=== PATIENT | female | born 1980 | race Caucasian/White ===

== ENCOUNTER 2017-05-23 11:47 | Inpatient (IN) | payer MEDICAID ==
[2017-05-23] VITALS (8 sets, daily range): BP systolic 121–134; BP diastolic 69–86; PULSE 78–90; RESP 14–18; TEMP 97.3–97.8; O2SAT 97–100
[~2017-05-23 11:47] MED LIST: AMOX500T PO; FERRTAB6 PO; HEMOCAP PO; PREN1CAP30 PO
[2017-05-23] MEDS ORDERED: DEXAMETHASONE SOD PHOS 4 MG/ML VIAL IV ONE (12:00)
[2017-05-23] MEDS ORDERED: LACTATED RINGER'S 1000 ML INJ 1,000 ML IV ONE ×2 (12:00→15:22)
[2017-05-23] MEDS ORDERED: OXYTOCIN 10 UNIT/ML AMP IV ONE (12:00)
[2017-05-23] MEDS ORDERED: PHENYLEPH/NS 1000 MCG/10 ML SYR IV ONE (12:00)
[2017-05-23] MEDS ORDERED: ceFAZolin INJ 1,000 MG VIAL IV ONE (12:00)
[2017-05-23] MEDS ORDERED: NORMOSOL R INJ 1,000 ML IV ONE (12:00)
[2017-05-23] MEDS ORDERED: ONDANSETRON HCL 4 MG/2 ML VIAL IV ONE (12:00)
[2017-05-23 13:04] LABS: AUTOMATED NEUTROPHIL # 7.1 TH/MM3 (1.8-7.7); BASOPHIL # 0.1 TH/MM3 (0-0.2); BASOPHIL % 0.6 % (0.0-2.0); EOSINOPHIL # 0.1 TH/MM3 (0-0.4); EOSINOPHIL % 1.3 % (0.0-4.0); HEMATOCRIT 33.7 % (35.0-46.0); HEMOGLOBIN 11.2 GM/DL (11.6-15.3); LYMPH % 20.4 % (9.0-44.0); MEAN CELL VOLUME 79.6 FL (80.0-100.0); MEAN CORPUSCULAR HEMOGLOBIN 26.5 PG (27.0-34.0); MEAN CORPUSCULAR HGB CONC 33.2 % (32.0-36.0); MEAN PLATELET VOLUME 9.9 FL (7.0-11.0); MONO % 5.4 % (0.0-8.0); MONOCYTE # 0.5 TH/MM3 (0-0.9); NEUT % 72.3 % (16.0-70.0); PLATELET COUNT 269 TH/MM3 (150-450); RED BLOOD COUNT 4.24 MIL/MM3 (4.00-5.30); RED CELL DISTRIBUTION WIDTH 17.7 % (11.6-17.2); WHITE BLOOD COUNT 9.8 TH/MM3 (4.0-11.0)
[2017-05-23 13:14] LABS: BACTERIA, URINE FEW /hpf; BILIRUBIN, URINE NEG (NEG); BLOOD, URINE NEG (NEG); GLUCOSE,URINE NEG (NEG); KETONE, URINE NEG (NEG); MUCUS URINE FEW /lpf (OCC); NITRITE,URINE NEG (NEG); SQUAMOUS EPITHELIAL CELL URINE 26 /hpf (0-5); URINE COLOR YELLOW (YELLW/STRAW); URINE LEUKOCYTE ESTERASE LARGE (NEG)
[2017-05-23 13:25] LABS: ALBUMIN 2.3 GM/DL (3.4-5.0); ALT (GPT) 24 U/L (10-53); AST (GOT) 18 U/L (15-37); BICARBONATE 19.4 MEQ/L (21.0-32.0); BLOOD UREA NITROGEN 14 MG/DL (7-18); CALCIUM 9.2 MG/DL (8.5-10.1); CHLORIDE 106 MEQ/L (98-107); CREATININE 0.71 MG/DL (0.50-1.00); GLOMERULAR FILTRATION RATE 94 ML/MIN (>89); GLUCOSE,RANDOM 79 MG/DL (74-106); SODIUM (NA) 137 MEQ/L (136-145)
[2017-05-23 13:28] LABS: ALKALINE PHOSPHATASE 162 U/L (45-117); TOTAL BILIRUBIN ADULT 0.3 MG/DL (0.2-1.0)
--- NOTE | 2017-05-23 14:54 | PD ---
HPI Chief Complaint high blood pressure Date Seen: May 23, 2017 Time Seen: 13:00 Travel History International Travel<30 Days: No Contact w/Intl Traveler<30Days: No History of Present Illness HPI 36 y/o at 39/0 weeks presents today from her OB office for evaluation of high blood pressure. She sees [facility] and was seen in office today and sent over to the ED for further evaluation. Pt has some headaches, but otherwise denies any other symptoms. She states she had elevated pressures previously in , but resolved. History of anemia prior to , and has been taking iron during the . Denies any leg swelling, changes in vision, RUQ pain. No problems during this . She was scheduled for repeat on Friday. Denies any other vaginal bleeding, loss of fluids. Endorses occasional Melvin-carlin contractions. Endorses good movement. Denies any chest pain , SOB, abdominal pain, leg pain/swelling. Weeks Gestation: 39 Para: 1 : 2 History Past Medical History Narrative Medical Anemia Obstetric History Obstetric History Past Surgical History Narrative Surgical Cholecystectomy Knee surgery Family History Family History: Negative Social History Alcohol Use: No Tobacco Use: No Substance Abuse: No Allergies-Medications (Allergen,Severity, Reaction): Coded Allergies: No Known Allergies (Unverified Adverse Reaction, Unknown, 05/16/17) Home Meds Active Scripts Amoxicillin (Amoxicillin) 500 Mg Tab, 500 MG PO TID for Infection for 10 Days, # 21 TAB 0 Refills Prov:Johanna Simon CNM [facility] 04/30/17 Ferrous Aqqgpejt-BT-K Complex- (Ferrocite Plus 106-1 mg) 106 Mg Iron-1 Mg Tab, 1 CAP PO BID for 30 Days, #60 CAP 2 Refills Prov:Johanna Simon CNM [facility] 04/23/17 Multi-Vit w/JH-Zprk-Fhnvlyeg (Hemocyte Plus) 106 Mg Iron-1 Mg Cap, 1 CAP PO DAILY for Nutritional Supplement, #30 CAP 0 Refills Prov:Paolo Torres MD 02/20/17 Without A W/Fe Fum-Fe (Provida Dha 16-16-1.25-110 mg) 1 Cap Cap, 1 TAB PO DAILY, #90 BOTTLE 3 Refills Prov:SherAnastacia B. [facility] 11/22/16 Vit W/ Ferrous Fumara (Vitafol-Ob) 1 Tab Tab Prov:Johanna SimonIsai ORTEGA [facility] 11/22/16 Review of Systems General / Constitutional: Weight Gain, No: Fever, Weight Loss, Chills, Other Eyes: No: Diploplia, Blurred Vision, Visual changes, Pain, Photophobia HENT: No: Headaches, Vertigo, Lightheadedness Cardiovascular: No: Irregular Rhythm, Chest Pain or Discomfort, Palpitations, Tachycardia, Syncope, Varicosities, Edema, Cyanosis Respiratory: No: Cough, Short of Breath, Other Gastrointestinal: No: Nausea, Vomiting, Diarrhea, Abdominal Pain, Constipation Genitourinary: No: Urgency, Frequency, Dysuria, Hematuria, Decreased Urinary Output, Oliguria, Pelvic Pain, Discharge, Menorrhagia, Vaginal Bleeding Musculoskeletal: No: Limited ROM, Weakness, Cramping, Edema, Pain Skin: No Rash, No Itching, No Dryness, No Lumps, No Change in Pigmentation, No Change in Nails, No Alopecia, No Lesions Neurologic: No: Weakness, Dizziness, Syncope, Focal Abnormalities, Coordination Problem, Headache, Slurred Speech, Seizures Psychiatric: No: Depression, Suicidal Ideations, Homicidal Ideation Endocrine: No: Heat Intolerance, Cold Intolerance, Polydipsia, Polyuria, Other Physical Exam Narrative GENERAL: Well-nourished, well-developed patient. SKIN: Warm and dry. HEAD: Normocephalic and atraumatic. EYES: No scleral icterus. No injection or drainage. ENT: No nasal drainage noted. Mucous membranes pink. Airway patent. NECK: Supple, trachea midline. No JVD. CARDIOVASCULAR: Regular rate and rhythm without murmurs, gallops, or rubs. RESPIRATORY: Breath sounds equal bilaterally. No accessory muscle use. ABDOMEN/GI: Abdomen soft, non-tender, bowel sounds present, no rebound, no guarding Gravid to 39 weeks size GENITOURINARY: deferred Uterine Contractions: occasional FHT's: Category: 1 Baseline: 150 Reactive: yes Variability: moderate Decels: one late noted w/o contraction EXTREMITIES: No cyanosis or edema. BACK: Nontender without obvious deformity. No CVA tenderness. NEUROLOGICAL: Awake and alert. Motor and sensory grossly within normal limits. Five out of 5 muscle strength in all muscle groups. Normal speech. Data Data Vital Signs Reviewed: Yes Orders Orders Complete Blood Count With Diff (05/23/17 12:45) Comprehensive Metabolic Panel (05/23/17 12:45) Uric Acid (05/23/17 12:45) Protein Creat Ratio, Random Ur (05/23/17 12:45) Urinalysis - C+S If Indicated (05/23/17 12:48) Ob (2e) Additional Admit Info (05/23/17 14:28) Group B Strep: Positive Labs Laboratory Tests Test 05/23/17 12:38 White Blood Count 9.8 Red Blood Count 4.24 Hemoglobin 11.2 Hematocrit 33.7 Mean Corpuscular Volume 79.6 Mean Corpuscular Hemoglobin 26.5 Mean Corpuscular Hemoglobin Concent 33.2 Red Cell Distribution Width 17.7 Platelet Count 269 Mean Platelet Volume 9.9 Neutrophils (%) (Auto) 72.3 Lymphocytes (%) (Auto) 20.4 Monocytes (%) (Auto) 5.4 Eosinophils (%) (Auto) 1.3 Basophils (%) (Auto) 0.6 Neutrophils # (Auto) 7.1 Lymphocytes # (Auto) 2.0 Monocytes # (Auto) 0.5 Eosinophils # (Auto) 0.1 Basophils # (Auto) 0.1 CBC Comment DIFF FINAL Differential Comment Urine Color YELLOW Urine Turbidity HAZY Urine pH 6.0 Urine Specific [place] 1.019 Urine Protein TRACE Urine Glucose (UA) NEG Urine Ketones NEG Urine Occult Blood NEG Urine Nitrite NEG Urine Bilirubin NEG Urine Urobilinogen LESS THAN 2.0 Urine Leukocyte Esterase LARGE Urine RBC 2 Urine WBC 5 Urine Squamous Epithelial Cells 26 Urine Bacteria FEW Urine Mucus FEW Microscopic Urinalysis Comment CULT NOT INDICATED Urine Random Creatinine 120 Urine Random Total Protein 28 Urine Protein/Creatinine Ratio 0.23 Blood Urea Nitrogen 14 Creatinine 0.71 Random Glucose 79 Total Protein 7.0 Albumin 2.3 Calcium Level 9.2 Uric Acid 4.2 Alkaline Phosphatase 162 Aspartate Amino Transf (AST/SGOT) 18 Alanine Aminotransferase (ALT/SGPT) 24 Total Bilirubin 0.3 Sodium Level 137 Potassium Level 3.9 Chloride Level 106 Carbon Dioxide Level 19.4 Anion Gap 12 Estimat Glomerular Filtration Rate 94 MDM Medical Record Reviewed: Yes Interpretation(s) 36 y/o at 39 weeks presents with high blood pressure BP 150/94 initially Category 1 FHT -Pre-eclampsia workup -CBC, CMP, uric acid, UA w/ protein/Cr ratio -Monitor vitals -Monitor baby Narrative Course / MDM Continued high blood pressures, up to 158/105 Plts 269, uric acid 4.2, AST/ALT 18/24, UA Protein/Cr ratio: 0.23 -With continued elevated BPs and being scheduled for repeat in 3 days , decision made to undergo today -Admit to L&D -Pre-op orders Diagnosis Diagnosis: Primary Impression: Hypertension affecting in third trimester Felix Garcia MD May 23, 2017 14:54
[2017-05-23] MEDS ORDERED: MORPHINE SULFATE PF 5 MG/10 ML VIAL ONE (15:28)
[2017-05-23] MEDS ORDERED: ACETAMINOPHEN 1000 MG/100 ML 100 ML IV ONE ×2 (15:29→19:00)
--- NOTE | 2017-05-23 15:50 | PD ---
History of Present Illness History of Present Illness [facility] Attending The patient is a 36-year-old with intrauterine 39 weeks and 0 days. She presents from the office with elevated blood pressures. Her blood pressures are elevated here at 150s over 90s and she has a headache. The fetus has an overall reassuring heart rate tracing but occasionally will have a spontaneous, self resolving deceleration. In between, the heart rate tracing is moderate long-term variability with good accelerations noted. Decision was made to proceed with a repeat delivery. Risks benefits and alternatives were discussed with the patient length including but not limited to pain, infection, bleeding, injury to other organs like the bladder/ bowel/nerves/vessels, injury to the baby, need for repeat operation, need for hysterectomy, need for blood transfusion, wound infection/breakdown, and other possible complications. The patient desires permanent surgical sterilization and signed her papers on 03/25/17. We discussed the permanent irreversible nature of the procedure and that the procedure cannot be reversed if the patient desired any further biological children. She is certain that she is content with her family size and desires no further biological children. We discussed the risk of failure of approximately 1% with the associated risk of an ectopic that may require emergency surgery. We discussed other risks including tubal regret. We discussed alternatives at length including but not limited to the obiee report developer reversible contraceptive methods. The patient is certain she desires a tubal and states that in addition her is going to get a vasectomy. Consent was signed for the delivery and for the tubal ligation. Anastacia Hernández MD May 23, 2017 15:50
--- NOTE | 2017-05-23 16:14 | HHI.HP ---
History & Physical H&P HPI Chief Complaint high blood pressure Date Seen: May 23, 2017 Time Seen: 13:00 Travel History International Travel<30 Days: No Contact w/Intl Traveler<30Days: No History of Present Illness HPI 36 y/o at 39/0 weeks presents today from her OB office for evaluation of high blood pressure. She sees [facility] and was seen in office today and sent over to the ED for further evaluation. Pt has some headaches, but otherwise denies any other symptoms. She states she had elevated pressures previously in , but resolved. History of anemia prior to , and has been taking iron during the . Denies any leg swelling, changes in vision, RUQ pain. No problems during this . She was scheduled for repeat on Friday. Denies any other vaginal bleeding, loss of fluids. Endorses occasional Melvin-carlin contractions. Endorses good movement. Denies any chest pain , SOB, abdominal pain, leg pain/swelling. Weeks Gestation: 39 Para: 1 : 2 History (Limited) History Past Medical History Narrative Medical Anemia Obstetric History Obstetric History Past Surgical History Narrative Surgical Cholecystectomy Knee surgery Family History Family History: Negative Social History Alcohol Use: No Tobacco Use: No Substance Abuse: No Allergies-Medications Allergies-Medications (Allergen,Severity, Reaction): Coded Allergies: No Known Allergies (Unverified Adverse Reaction, Unknown, 05/16/17) Home Meds Active Scripts Amoxicillin (Amoxicillin) 500 Mg Tab, 500 MG PO TID for Infection for 10 Days, # 21 TAB 0 Refills Prov:Johanna Simon CNM [facility] 04/30/17 Ferrous Bmwjqpsx-NG-G Complex- (Ferrocite Plus 106-1 mg) 106 Mg Iron-1 Mg Tab, 1 CAP PO BID for 30 Days, #60 CAP 2 Refills Prov:Johanna Simon CNM [facility] 04/23/17 Multi-Vit w/WN-Hxxp-Irdugoar (Hemocyte Plus) 106 Mg Iron-1 Mg Cap, 1 CAP PO DAILY for Nutritional Supplement, #30 CAP 0 Refills Prov:Paolo Torres MD 02/20/17 Without A W/Fe Fum-Fe (Provida Dha 16-16-1.25-110 mg) 1 Cap Cap, 1 TAB PO DAILY, #90 BOTTLE 3 Refills Prov:Anastacia Olivarez [facility] 11/22/16 Vit W/ Ferrous Fumara (Vitafol-Ob) 1 Tab Tab Prov:SimonJohanna MaximilianIsai ORTEGA [facility] 11/22/16 ROS Review of Systems General / Constitutional: Weight Gain, No: Fever, Weight Loss, Chills, Other Eyes: No: Diploplia, Blurred Vision, Visual changes, Pain, Photophobia HENT: No: Headaches, Vertigo, Lightheadedness Cardiovascular: No: Irregular Rhythm, Chest Pain or Discomfort, Palpitations, Tachycardia, Syncope, Varicosities, Edema, Cyanosis Respiratory: No: Cough, Short of Breath, Other Gastrointestinal: No: Nausea, Vomiting, Diarrhea, Abdominal Pain, Constipation Genitourinary: No: Urgency, Frequency, Dysuria, Hematuria, Decreased Urinary Output, Oliguria, Pelvic Pain, Discharge, Menorrhagia, Vaginal Bleeding Musculoskeletal: No: Limited ROM, Weakness, Cramping, Edema, Pain Skin: No Rash, No Itching, No Dryness, No Lumps, No Change in Pigmentation, No Change in Nails, No Alopecia, No Lesions Neurologic: No: Weakness, Dizziness, Syncope, Focal Abnormalities, Coordination Problem, Headache, Slurred Speech, Seizures Psychiatric: No: Depression, Suicidal Ideations, Homicidal Ideation Endocrine: No: Heat Intolerance, Cold Intolerance, Polydipsia, Polyuria, Other Physical Exam Physical Exam Narrative GENERAL: Well-nourished, well-developed patient. SKIN: Warm and dry. HEAD: Normocephalic and atraumatic. EYES: No scleral icterus. No injection or drainage. ENT: No nasal drainage noted. Mucous membranes pink. Airway patent. NECK: Supple, trachea midline. No JVD. CARDIOVASCULAR: Regular rate and rhythm without murmurs, gallops, or rubs. RESPIRATORY: Breath sounds equal bilaterally. No accessory muscle use. ABDOMEN/GI: Abdomen soft, non-tender, bowel sounds present, no rebound, no guarding Gravid to 39 weeks size GENITOURINARY: deferred Uterine Contractions: occasional FHT's: Category: 1 Baseline: 150 Reactive: yes Variability: moderate Decels: one late noted w/o contraction EXTREMITIES: No cyanosis or edema. BACK: Nontender without obvious deformity. No CVA tenderness. NEUROLOGICAL: Awake and alert. Motor and sensory grossly within normal limits. Five out of 5 muscle strength in all muscle groups. Normal speech. Data Data Data Vital Signs Reviewed: Yes Orders Orders Complete Blood Count With Diff (05/23/17 12:45) Comprehensive Metabolic Panel (05/23/17 12:45) Uric Acid (05/23/17 12:45) Protein Creat Ratio, Random Ur (05/23/17 12:45) Urinalysis - C+S If Indicated (05/23/17 12:48) Ob (2e) Additional Admit Info (05/23/17 14:28) Group B Strep: Positive Labs Laboratory Tests Test 05/23/17 12:38 White Blood Count 9.8 Red Blood Count 4.24 Hemoglobin 11.2 Hematocrit 33.7 Mean Corpuscular Volume 79.6 Mean Corpuscular Hemoglobin 26.5 Mean Corpuscular Hemoglobin Concent 33.2 Red Cell Distribution Width 17.7 Platelet Count 269 Mean Platelet Volume 9.9 Neutrophils (%) (Auto) 72.3 Lymphocytes (%) (Auto) 20.4 Monocytes (%) (Auto) 5.4 Eosinophils (%) (Auto) 1.3 Basophils (%) (Auto) 0.6 Neutrophils # (Auto) 7.1 Lymphocytes # (Auto) 2.0 Monocytes # (Auto) 0.5 Eosinophils # (Auto) 0.1 Basophils # (Auto) 0.1 CBC Comment DIFF FINAL Differential Comment Urine Color YELLOW Urine Turbidity HAZY Urine pH 6.0 Urine Specific [place] 1.019 Urine Protein TRACE Urine Glucose (UA) NEG Urine Ketones NEG Urine Occult Blood NEG Urine Nitrite NEG Urine Bilirubin NEG Urine Urobilinogen LESS THAN 2.0 Urine Leukocyte Esterase LARGE Urine RBC 2 Urine WBC 5 Urine Squamous Epithelial Cells 26 Urine Bacteria FEW Urine Mucus FEW Microscopic Urinalysis Comment CULT NOT INDICATED Urine Random Creatinine 120 Urine Random Total Protein 28 Urine Protein/Creatinine Ratio 0.23 Blood Urea Nitrogen 14 Creatinine 0.71 Random Glucose 79 Total Protein 7.0 Albumin 2.3 Calcium Level 9.2 Uric Acid 4.2 Alkaline Phosphatase 162 Aspartate Amino Transf (AST/SGOT) 18 Alanine Aminotransferase (ALT/SGPT) 24 Total Bilirubin 0.3 Sodium Level 137 Potassium Level 3.9 Chloride Level 106 Carbon Dioxide Level 19.4 Anion Gap 12 Estimat Glomerular Filtration Rate 94 MDM MDM Medical Record Reviewed: Yes Interpretation(s) 36 y/o at 39 weeks presents with high blood pressure BP 150/94 initially Category 1 FHT -Pre-eclampsia workup -CBC, CMP, uric acid, UA w/ protein/Cr ratio -Monitor vitals -Monitor baby Narrative Course / MDM Continued high blood pressures, up to 158/105 Plts 269, uric acid 4.2, AST/ALT 18/24, UA Protein/Cr ratio: 0.23 -With continued elevated BPs and being scheduled for repeat in 3 days , decision made to undergo today -Admit to L&D -Pre-op orders Felix Garcia MD May 23, 2017 16:14
[2017-05-23] MEDS ORDERED: ceFAZolin 2 GM PREMIX 50 ML IV SCH (16:30)
[2017-05-23] MEDS ORDERED: CITRIC ACID-SODIUM CITRATE LIQ 30 ML UDC PO SCH (17:00)
--- NOTE | 2017-05-23 17:45 | PD.OB.DELI ---
Procedure Note Section Procedure Performed by Anastacia Hernández Procedure: Repeat Low Transverse Sec Indication for delivery: Maternal medical problems Informed consent obtained: For anesthesia, For procedure Confirmed correct: Patient, Procedure, Site, Time-out taken Anesthesia: Spinal Medication prior to procedure: As documented in eMAR Monitoring during procedure: Blood pressure monitoring, alarm security or surveillance monitor, doppler, Pulse oximetry Urinary catheter: Inserted using sterile technique, To dependent drainage, ml urine output (100 cc clear urine) Sterile preparation: With drapes to expose affected area, Other (Chloraprep) Position: Supine with wedge to left side Operative Features Skin Incision: Pfannenstiel Uterine Incision: Low transverse w/knife / blunt ext Membranes Ruptured: Artificially, Appearance of fluid (thin meconium) Presentation: Occiput posterior Delivery date: May 23, 2017 Delivery time: 16:21 Delivery of : Uneventful Infant: Female One Minute : 9 Five Minute : 9 Weight: 7#12oz Status of : Viable, Cord blood, Umbilical cord Placenta delivered: Intact Medications: Antibiotics, Oxytocin Estimated blood loss: 750cc Procedure tolerated: Well Maternal Condition: Stable Condition: Stable Procedure in detail See dictation Anastacia Hernández MD May 23, 2017 17:45
[2017-05-23] MEDS ORDERED: EPIDURAL-NO SYSTEMIC NARCOTICS PRN (18:45)
[2017-05-23] MEDS ORDERED: EPIDURAL-NALOXONE HCL 0.4 MG/ML AMP IV PUSH PRN (18:45)
[2017-05-23] MEDS ORDERED: EPIDURAL-DO NOT ADMINISTER ANTICOAGULANTS PRN (18:45)
[2017-05-23] MEDS ORDERED: EPIDURAL-DIPHENHYDRAMINE HCL 50 MG/ML VIAL IV PUSH PRN (18:45)
[2017-05-23] MEDS ORDERED: ZOLPIDEM TARTRATE 5 MG TAB PO PRN (19:00)
[2017-05-23] MEDS ORDERED: ACETAMINOPHEN 325 MG TAB PO PRN (19:00)
[2017-05-23] MEDS ORDERED: SODIUM CHLORIDE 0.9% FLUSH 10 ML FLUSH IV FLUSH PRN (19:00)
[2017-05-23] MEDS ORDERED: ONDANSETRON HCL 4 MG/2 ML VIAL IV PUSH PRN (19:00)
[2017-05-23] MEDS ORDERED: OXYTOCIN 30 UNITS-500ML PREMIX 500 ML IV ONE (19:00)
[2017-05-23] MEDS: IBUPROFEN 600 MG TAB PO PRN (19:51)
[2017-05-23] MEDS ORDERED: LACTATED RINGER'S 1000 ML INJ 1,000 ML IV SCH (23:47)
[2017-05-24] VITALS: BP 134/71; PULSE 82; RESP 18; TEMP 97.5
[2017-05-24] MEDS: oxyCODONE/ACETAMINOPHEN 5 MG/325 MG TAB PO PRN ×5 (00:06→20:10)
[2017-05-24] MEDS: EPIDURAL-DIPHENHYDRAMINE HCL 50 MG CAP PO PRN ×2 (02:17→09:00)
[2017-05-24 04:00] VITALS: BP 122/79; PULSE 81; RESP 18; TEMP 97.8
[2017-05-24] MEDS: IBUPROFEN 600 MG TAB PO PRN ×3 (04:22→22:41)
[2017-05-24] MEDS: DOCUSATE SODIUM 50 MG/SENNA 8.6 MG TAB PO PRN ×2 (04:22→20:10)
[2017-05-24] MEDS ORDERED: OXYTOCIN 30 UNITS-500ML PREMIX 500 ML IV PRN (05:00)
[2017-05-24 05:17] LABS: AUTOMATED NEUTROPHIL # 13.4 TH/MM3 (1.8-7.7); BASOPHIL % 0.2 % (0.0-2.0); HEMATOCRIT 28.7 % (35.0-46.0); HEMOGLOBIN 9.4 GM/DL (11.6-15.3); LYMPH % 8.8 % (9.0-44.0); LYMPHOCYTE # 1.4 TH/MM3 (1.0-4.8); MEAN CELL VOLUME 79.2 FL (80.0-100.0); MEAN CORPUSCULAR HGB CONC 32.8 % (32.0-36.0); MEAN PLATELET VOLUME 10.6 FL (7.0-11.0); MONO % 3.8 % (0.0-8.0); MONOCYTE # 0.6 TH/MM3 (0-0.9); NEUT % 87.2 % (16.0-70.0); PLATELET COUNT 231 TH/MM3 (150-450); RED BLOOD COUNT 3.63 MIL/MM3 (4.00-5.30); RED CELL DISTRIBUTION WIDTH 17.5 % (11.6-17.2); WHITE BLOOD COUNT 15.3 TH/MM3 (4.0-11.0)
--- NOTE | 2017-05-24 06:08 | HHI.OB ---
Objective Vitals/I&O Vital Signs Date Time Temp Pulse Resp B/P (MAP) Pulse Ox O2 Delivery O2 Flow Rate FiO2 05/24/17 04:00 122/79 (93) 05/24/17 04:00 97.8 81 18 05/24/17 00:00 97.5 05/24/17 00:00 82 18 134/71 (92) 05/23/17 19:43 82 121/71 (88) 05/23/17 19:43 97.6 18 97 05/23/17 18:40 78 122/86 (98) 05/23/17 18:40 97.8 14 97 05/23/17 18:16 80 18 134/74 (94) 05/23/17 18:16 99 05/23/17 18:10 100 05/23/17 18:10 78 18 132/69 (90) 05/23/17 17:55 79 18 128/78 (95) 100 05/23/17 17:55 97.3 05/23/17 17:40 100 05/23/17 17:40 79 18 128/77 (94) 05/23/17 17:25 88 18 130/75 (93) 97 05/23/17 17:15 97.3 90 18 100 05/23/17 17:15 123/73 (90) Objective Remarks GENERAL: Well-nourished, well-developed patient. CARDIOVASCULAR: Regular rate and rhythm without murmurs, gallops, or rubs. RESPIRATORY: Breath sounds equal bilaterally. No accessory muscle use. ABDOMEN/GI: Abdomen soft, non-tender. Fundus: Firm, non-tender at umbilicus. GENITOURINARY: Light to moderate bleeding. EXTREMITIES: No cyanosis or edema, non-tender, without signs of DVT. Medications and IVs Current Medications Medications (Trade) Dose Ordered Sig/Kerrie Route Start Time Stop Time Status Last Admin Lactated Ringer's 1,000 ml @ 150 mls/hr Q6H40M IV 05/23/17 15:52 Cefazolin Sodium/ Dextrose 50 ml @ 100 mls/hr PERSONAL LINES ACCOUNT EXECUTIVE IV 05/23/17 16:30 05/27/17 16:29 05/23/17 15:34 (Bicitra Liq) 30 ml PERSONAL LINES ACCOUNT EXECUTIVE PO 05/23/17 17:00 05/27/17 16:59 05/23/17 15:34 Miscellaneous Information NO SYSTEMIC NARCOTICS TO BE GIVEN FO... UNSCH PRN .XX 05/23/17 18:45 05/24/17 18:44 (Narcan Inj) 0.4 mg UNSCH PRN IV PUSH 05/23/17 18:45 05/24/17 18:44 (Benadryl Inj) 25 mg Q6H PRN IV PUSH 05/23/17 18:45 05/24/17 18:44 (Benadryl) 50 mg Q6H PRN PO 05/23/17 18:45 05/24/17 18:44 05/24/17 02:17 Miscellaneous Information ALL NURSING DEPARTMENTS UNSCH PRN .XX 05/23/17 18:45 05/24/17 18:44 Lactated Ringer's 1,000 ml @ 100 mls/hr Q10H IV 05/23/17 23:47 05/24/17 19:46 05/23/17 04:00 Oxytocin 500 ml @ 100 mls/hr UNSCH X1 PRN IV 05/24/17 05:00 05/25/17 04:59 (NS Flush) 2 ml BID IV FLUSH 05/23/17 21:00 (NS Flush) 2 ml UNSCH PRN IV FLUSH 05/23/17 19:00 (Mylicon Chew) 80 mg QID PRN PO 05/23/17 19:00 (Tylenol) 650 mg Q6H PRN PO 05/23/17 19:00 (Motrin) 600 mg Q6H PRN PO 05/23/17 19:00 05/24/17 04:22 (Percocet 5-325 Mg) 1 tab Q4H PRN PO 05/23/17 19:00 05/24/17 04:22 (Percocet 5-325 Mg) 2 tab Q4H PRN PO 05/23/17 19:00 (Sandy-Colace) 2 tab Q12H PRN PO 05/23/17 19:00 05/24/17 04:22 (Ambien) 5 mg HS PRN PO 05/23/17 19:00 (M-M-R Ii Inj) 0.5 ml ONCE ONCE SQ 05/24/17 16:00 05/24/17 16:01 (Boostrix Inj) 0.5 ml ONCE ONCE IM 05/24/17 16:00 05/24/17 16:01 (Zofran Inj) 4 mg Q6H PRN IV PUSH 05/23/17 19:00 Samia Hudson MD R2 May 24, 2017 06:08
--- NOTE | 2017-05-24 06:12 | HHI.OB ---
Subjective Post Operative Day: 1 Remarks Postoperative day # 1. AFVSS overnight. Pain is well controlled on medication. She feels pain in her back and her incision feels sore. Incision clean, dry, and intact, not draining. Lochia less than a period. Denies dysuria. No breast tenderness. She is feeding the baby via breast. Appetite good. No nausea or vomiting. Negative flatus. Negative bowel movement. Ambulating well. Denies fever, chills, cough, shortness of breath, chest pain, and calf pain. Otherwise , she is doing well this morning and has no other complaints. Objective Vitals/I&O Vital Signs Date Time Temp Pulse Resp B/P (MAP) Pulse Ox O2 Delivery O2 Flow Rate FiO2 05/24/17 04:00 122/79 (93) 05/24/17 04:00 97.8 81 18 05/24/17 00:00 97.5 05/24/17 00:00 82 18 134/71 (92) 05/23/17 19:43 82 121/71 (88) 05/23/17 19:43 97.6 18 97 05/23/17 18:40 78 122/86 (98) 05/23/17 18:40 97.8 14 97 05/23/17 18:16 80 18 134/74 (94) 05/23/17 18:16 99 05/23/17 18:10 100 05/23/17 18:10 78 18 132/69 (90) 05/23/17 17:55 79 18 128/78 (95) 100 05/23/17 17:55 97.3 05/23/17 17:40 100 05/23/17 17:40 79 18 128/77 (94) 05/23/17 17:25 88 18 130/75 (93) 97 05/23/17 17:15 97.3 90 18 100 05/23/17 17:15 123/73 (90) Result Diagram: 05/24/17 0451 05/23/17 1238 Objective Remarks GENERAL: Well-nourished, well-developed patient. CARDIOVASCULAR: Regular rate and rhythm without murmurs, gallops, or rubs. RESPIRATORY: Breath sounds equal bilaterally. No accessory muscle use. ABDOMEN/GI: Abdomen soft, non-tender, bowel sounds present. Incision: Clean, dry and intact. Fundus: Firm, non-tender below umbilicus. GENITOURINARY: Light to moderate bleeding. EXTREMITIES: No cyanosis or edema, non-tender, without signs of DVT. Medications and IVs Current Medications Medications (Trade) Dose Ordered Sig/Kerrie Route Start Time Stop Time Status Last Admin Lactated Ringer's 1,000 ml @ 150 mls/hr Q6H40M IV 05/23/17 15:52 Cefazolin Sodium/ Dextrose 50 ml @ 100 mls/hr CLIENT MANAGER IV 05/23/17 16:30 05/27/17 16:29 05/23/17 15:34 (Bicitra Liq) 30 ml CLIENT MANAGER PO 05/23/17 17:00 05/27/17 16:59 05/23/17 15:34 Miscellaneous Information NO SYSTEMIC NARCOTICS TO BE GIVEN FO... UNSCH PRN .XX 05/23/17 18:45 05/24/17 18:44 (Narcan Inj) 0.4 mg UNSCH PRN IV PUSH 05/23/17 18:45 05/24/17 18:44 (Benadryl Inj) 25 mg Q6H PRN IV PUSH 05/23/17 18:45 05/24/17 18:44 (Benadryl) 50 mg Q6H PRN PO 05/23/17 18:45 05/24/17 18:44 05/24/17 02:17 Miscellaneous Information ALL NURSING DEPARTMENTS UNSCH PRN .XX 05/23/17 18:45 05/24/17 18:44 Lactated Ringer's 1,000 ml @ 100 mls/hr Q10H IV 05/23/17 23:47 05/24/17 19:46 05/23/17 04:00 Oxytocin 500 ml @ 100 mls/hr UNSCH X1 PRN IV 05/24/17 05:00 05/25/17 04:59 (NS Flush) 2 ml BID IV FLUSH 05/23/17 21:00 (NS Flush) 2 ml UNSCH PRN IV FLUSH 05/23/17 19:00 (Mylicon Chew) 80 mg QID PRN PO 05/23/17 19:00 (Tylenol) 650 mg Q6H PRN PO 05/23/17 19:00 (Motrin) 600 mg Q6H PRN PO 05/23/17 19:00 05/24/17 04:22 (Percocet 5-325 Mg) 1 tab Q4H PRN PO 05/23/17 19:00 05/24/17 04:22 (Percocet 5-325 Mg) 2 tab Q4H PRN PO 05/23/17 19:00 (Sandy-Colace) 2 tab Q12H PRN PO 05/23/17 19:00 05/24/17 04:22 (Ambien) 5 mg HS PRN PO 05/23/17 19:00 (M-M-R Ii Inj) 0.5 ml ONCE ONCE SQ 05/24/17 16:00 05/24/17 16:01 (Boostrix Inj) 0.5 ml ONCE ONCE IM 05/24/17 16:00 05/24/17 16:01 (Zofran Inj) 4 mg Q6H PRN IV PUSH 05/23/17 19:00 Assessment/Plan Assessment and Plan 36y/o female who is POD#1 s/p CS -Continue routine care -Percocet and Motrin PRN pain -Pericolase PRN for constipation -Encouraged OOB. Advised pelvic rest for 6 wks -Will need a follow-up appointment within 1 week for incision check -Re: ctrl - patient had a tubal ligation Discussed with Dr. Hernández Discharge Planning Discharge home in 1-2 days Samia Hudson MD R2 May 24, 2017 06:12
[2017-05-24 08:00] VITALS: BP 121/84; PULSE 85; RESP 16; TEMP 97.9; O2SAT 97
[2017-05-24 12:00] VITALS: BP 125/74; PULSE 86; RESP 18; TEMP 97.8; O2SAT 98
[2017-05-24] MEDS: SIMETHICONE 80 MG CHEWABLE TAB PO PRN (12:27)
[2017-05-24 16:00] VITALS: BP 128/69; PULSE 84; RESP 15; TEMP 98; O2SAT 99
[2017-05-24] MEDS ORDERED: DIPHTH/TETANUS/ACEL PERTUSSIS (BOOSTER) 0.5 ML VIAL/PFS IM ONE (16:00)
[2017-05-24] MEDS ORDERED: MEASLES, MUMPS, RUBELLA VACCINE 0.5 ML VIAL SQ ONE (16:00)
--- NOTE | 2017-05-24 21:05 | MP ---
cc: DELON HERNÁNDEZ MD DATE OF SURGERY 05/23/17 PREOPERATIVE DIAGNOSIS 1. Intrauterine at 39 weeks and 2 days 2. Preeclampsia with severe features 3. Obesity 4. Prior caesarean delivery 5. Desires permanent surgical sterilization 6. Occasional heart rate decelerations with other reassuring heart rate tracing. POSTOPERATIVE DIAGNOSIS 1. Intrauterine at 39 weeks and 2 days 2. Preeclampsia with severe features 3. Obesity 4. Prior caesarean delivery 5. Desires permanent surgical sterilization 6. Occasional heart rate decelerations with other reassuring heart rate tracing. PROCEDURE 1. Repeat low transverse caesarean section with two layer closure and no extension by Pfannenstiel incision. 2. Placement of self containing wound retractor 3. Bilateral tubal ligation by modified Bly method. SURGEON Antony Hernández MD AGRICULTURE INTERN Piedad Keane SPECIMEN SUBMITTED Bilateral fallopian tube segments. SPECIMENS REMOVED Placenta, bilateral fallopian tube segments. FINDINGS 1. A viable female infant with Apgars 9/9 weighing 7 pounds 12 ounces delivered at 16:21. 2. Grossly normal maternal anatomy with grossly normal fallopian tubes, uterus, ovaries. ESTIMATED BLOOD LOSS 750 mL URINE OUTPUT 100 mL clear urine at the end of the procedure. IV FLUID 1500 mL lactated ringers INDICATIONS The patient is a 36 year old 2, para 1-0-0-1 who presented at 39 weeks. She was sent over from the clinic with elevated blood pressures. Upon arrival, she was noted to have elevated blood pressures with a headache and, while overall had reassuring heart tracing with good accelerations, an occasional heart rate deceleration was noted. A decision was made to proceed with a repeat low transverse caesarean delivery. PROCEDURE IN DETAIL After obtaining informed consent with risks, benefits and alternatives discussed at length including but not limited to pain, infection, bleeding, injury to other bladder, bowels, nerves, vessels, injury to the baby, need for a blood transfusion, need for a hysterectomy, need for repeat operation, wound infection or breakdown and other possible complications as well as confirming the patient's desire for permanent surgical sterilization even if an unfortunate event were to happen with one of her children, she desires no further biological children and is aware of the risks of tubal regret, the irreversible and permanent nature of the procedure as well as the risk of failure of approximately 1% with the associated risk of ectopic . We also discussed alternatives including but limited to the reversible long-term contraceptive methods. After informed consent was obtained, the patient was taken to the operating room where she underwent spinal anesthesia without difficulty. She was placed in dorsal supine position with a leftward tilt. Reassuring heart tones were confirmed. The patient was prepped and draped in normal sterile fashion. After once again confirming adequate anesthesia, a time procedure was performed. After once again confirming adequate anesthesia, a Pfannenstiel incision was made with the scalpel and carried down to the level of the fascia. The fascia was nicked in the midline with the scalpel and the fascial incision extended laterally with curved Milligan scissors. The Jonas clamps were applied to the superior aspect of the fascial incision which was dissected off the overlying rectus muscles bluntly with the curved Milligan scissors. The Jonas clamps were applied to the inferior aspect of the fascial incision which was dissected off in a similar fashion. Rectus muscles were in the midline and the peritoneal incision was extended. A band of scar tissue was taken down sharply with the curved Metzenbaum scissors. The Royce self containing wound retractor was placed and the vesicouterine peritoneum identified, grasped with the pickups and entered sharply with the Metzenbaum scissors. This incision was extended laterally and the bladder flap created digitally. The lower uterine segment was incised with a scalpel and a hysterotomy created bluntly. The hysterotomy was extended bluntly. The vertex was elevated to the level of the hysterotomy and delivered atraumatically followed by atraumatic delivery of the remainder of the . The was vigorous after stimulation so cord clamp was delayed for 45 seconds. After 45 seconds, the cord was doubled clamped and cut and the passed off to the awaiting neonatology team. Cord segment was obtained for cord pH and cord blood was obtained for the nursery. The placenta was removed manually and the uterus cleared of all clots and debris with a dry laparotomy sponge. The hysterotomy was repaired with a #1 Chromic in a running lock fashion. The second layer the same suture was used in imbricating fashion after checking ___ hemostasis was noted. After confirming the patient's desire to proceed with permanent surgical sterilization, the mid portion of the left fallopian tube was grasped with Haley clamps at approximately 3-4 cm segment of fallopian tube was suture ligated with 3-0 plain gut. A second suture of 0 plain gut was placed to secure the first and approximately 2-3 cm segment of fallopian tube was transected. Both ostia were appreciated and noted to have hemostatic. Attention was turned to the patient's right fallopian tube which was grasped in the mid portion in a similar fashion with the [place] clamps. A 3-0 plain gut was used to suture ligate approximately 3-4 cm segment of fallopian tube followed by placement of a 0 plain catgut free tie to secure this fallopian tube segment. Approximately 2-3 cm segment was transected with the Metzenbaum scissors. Again, both ostia were appreciated and noted to be hemostatic. The left fallopian tube segments were once again examined, noted to be hemostatic followed by reexamination of the right fallopian tube segment which were also noted to be hemostatic. The Royce wound retractor was very carefully removed and the hysterotomy reinspected and noted to be hemostatic. The left fallopian tube segments were again reinspected and noted to be hemostatic followed by reinspection of the right fallopian tube segments which were also hemostatic. The peritoneum was reapproximated with 2-0 Vicryl in a running fashion. Rectus muscles were examined, noted to be hemostatic. Fascia was reapproximated with #1 Vicryl in a running fashion. The subcutaneous tissue was irrigated with warm normal saline and noted to be hemostatic. No fascial defects were noted. Subcutaneous tissue was reapproximated with 2-0 Vicryl in an interrupted fashion. The skin edges were reapproximated with 3-0 Monocryl in a subcuticular fashion. Dermabond was placed. Excellent cosmesis and hemostasis were noted. A silver dressing was placed under sterile conditions. All sponge, lap and needle counts were correct times four. I performed the entire procedure myself. MD ISABEL Washington/ /10:48 PM /8:08 PM
[2017-05-25] MEDS: oxyCODONE/ACETAMINOPHEN 5 MG/325 MG TAB PO PRN ×3 (04:47→19:41)
[2017-05-25] MEDS: SIMETHICONE 80 MG CHEWABLE TAB PO PRN ×2 (04:55→12:25)
[2017-05-25] MEDS: IBUPROFEN 600 MG TAB PO PRN ×3 (04:55→19:42)
[2017-05-25 08:00] VITALS: BP 135/75; PULSE 106; RESP 24; TEMP 98
--- NOTE | 2017-05-25 09:15 | HHI.OB ---
Subjective Post Operative Day: 2 Remarks POD#2. AFVSS overnight. Pain is controlled. Lochia less than a period. Denies dysuria. No breast tenderness. She is feeding the baby via breast. Appetite good. No nausea or vomiting. + flatus but no BM. Ambulating well. Denies fever , chills, cough, shortness of breath, chest pain, and calf pain. Otherwise, she is doing well this morning and has no other complaints. She would like to stay one more day. (Bacilio Yuen MD R1) Remarks Patient seen and evaluated with resident under direct supervision, agree with assessment and plan. (Berny Christiansen MD) Objective Vitals/I&O Vital Signs Date Time Temp Pulse Resp B/P (MAP) Pulse Ox O2 Delivery O2 Flow Rate FiO2 05/24/17 16:00 98.0 84 15 128/69 (88) 99 05/24/17 12:00 97.8 86 18 125/74 (91) 98 (Bacilio Yuen MD R1) Result Diagram: 05/24/17 0451 05/23/17 1238 Objective Remarks GENERAL: Well-nourished, well-developed patient. CARDIOVASCULAR: Regular rate and rhythm without murmurs, gallops, or rubs. RESPIRATORY: Breath sounds equal bilaterally. No accessory muscle use. ABDOMEN/GI: Abdomen soft, non-tender, bowel sounds present. Incision: Clean, dry and intact. Fundus: Firm, non-tender below umbilicus. GENITOURINARY: Light to moderate bleeding. EXTREMITIES: No cyanosis or edema, non-tender, without signs of DVT. Medications and IVs Current Medications Medications (Trade) Dose Ordered Sig/Kerrie Route Start Time Stop Time Status Last Admin Lactated Ringer's 1,000 ml @ 150 mls/hr Q6H40M IV 05/23/17 15:52 Cefazolin Sodium/ Dextrose 50 ml @ 100 mls/hr ORE DRYER IV 05/23/17 16:30 05/27/17 16:29 05/23/17 15:34 (Bicitra Liq) 30 ml ORE DRYER PO 05/23/17 17:00 05/27/17 16:59 05/23/17 15:34 (NS Flush) 2 ml BID IV FLUSH 05/23/17 21:00 (NS Flush) 2 ml UNSCH PRN IV FLUSH 05/23/17 19:00 (Mylicon Chew) 80 mg QID PRN PO 05/23/17 19:00 05/25/17 04:55 (Tylenol) 650 mg Q6H PRN PO 05/23/17 19:00 (Motrin) 600 mg Q6H PRN PO 05/23/17 19:00 05/25/17 04:55 (Percocet 5-325 Mg) 1 tab Q4H PRN PO 05/23/17 19:00 05/24/17 08:32 (Percocet 5-325 Mg) 2 tab Q4H PRN PO 05/23/17 19:00 05/25/17 04:47 (Sandy-Colace) 2 tab Q12H PRN PO 05/23/17 19:00 05/24/17 20:10 (Ambien) 5 mg HS PRN PO 05/23/17 19:00 (Zofran Inj) 4 mg Q6H PRN IV PUSH 05/23/17 19:00 (Bacilio Yuen MD R1) Assessment/Plan Assessment and Plan 36y/o female who is POD#2 s/p CS -Continue routine care -Percocet and Motrin PRN pain -Pericolase PRN for constipation -Encouraged OOB. Advised pelvic rest for 6 wks -Will need a follow-up appointment within 1 week for incision check -Re: ctrl - patient had a tubal ligation Discussed with Jhon Christiansen and Tristan Discharge Planning Discharge home tomorrow (Bacilio Yuen MD R1) Bacilio Yuen MD R1 May 25, 2017 09:15 Berny Christiansen MD May 30, 2017 10:30
[2017-05-25] MEDS: DOCUSATE SODIUM 50 MG/SENNA 8.6 MG TAB PO PRN (13:25)
[2017-05-25] MEDS: LACTATED RINGER'S 1000 ML INJ 1,000 ML IV SCH ×3 (14:32→21:42)
[2017-05-25 20:00] VITALS: BP 158/66; PULSE 95; RESP 18; TEMP 98; O2SAT 98
[2017-05-25] MEDS: SODIUM CHLORIDE 0.9% FLUSH 10 ML FLUSH IV FLUSH SCH ×2 (21:00→21:41)
[2017-05-26] MEDS: oxyCODONE/ACETAMINOPHEN 5 MG/325 MG TAB PO PRN ×4 (03:42→22:09)
[2017-05-26] MEDS: IBUPROFEN 600 MG TAB PO PRN ×4 (03:42→22:09)
[2017-05-26] MEDS ORDERED: OXYC1TAB63 PO (07:15)
[2017-05-26] MEDS ORDERED: IBUP-232 PO (07:15)
[2017-05-26] MEDS ORDERED: PERI PO (07:15)
[2017-05-26 08:00] VITALS: BP 147/96; PULSE 86; RESP 20; TEMP 97.7
[2017-05-26 08:28] VITALS: BP 160/104; PULSE 76; TEMP 98.4
--- NOTE | 2017-05-26 08:33 | HHI.OB ---
Subjective Post Operative Day: 3 Remarks Postoperative day number 3. AFVSS overnight. Pain minimal. Incision not draining. Decreased lochia. Denies dysuria. No breast tenderness. She is feeding the baby via breast. Appetite good. No nausea or vomiting. + flatus. 1 bowel movement. Ambulating well. Denies calf pain, shortness of breath, or cough. Otherwise, she is doing well this morning and has no other complaints. When informed about her BPs she started that she has had a headache since this morning. No other symptoms. No blurry vision, no spots in her vision, no weakness. Objective Vitals/I&O Vital Signs Date Time Temp Pulse Resp B/P (MAP) Pulse Ox O2 Delivery O2 Flow Rate FiO2 05/26/17 08:00 97.7 86 20 05/26/17 08:00 147/96 (113) 05/25/17 20:00 98.0 95 18 158/66 (96) 98 Result Diagram: 05/24/17 0451 05/23/17 1238 Objective Remarks GENERAL: Well-nourished, well-developed patient. CARDIOVASCULAR: Regular rate and rhythm without murmurs, gallops, or rubs. RESPIRATORY: Breath sounds equal bilaterally. No accessory muscle use. ABDOMEN/GI: Abdomen soft, non-tender, bowel sounds present. Incision: Clean, dry and intact. Fundus: Firm, non-tender below umbilicus. GENITOURINARY: Light to moderate bleeding. EXTREMITIES: No cyanosis or edema, non-tender, without signs of DVT. Medications and IVs Current Medications Medications (Trade) Dose Ordered Sig/Kerrie Route Start Time Stop Time Status Last Admin Lactated Ringer's 1,000 ml @ 150 mls/hr Q6H40M IV 05/23/17 15:52 Cefazolin Sodium/ Dextrose 50 ml @ 100 mls/hr SENIOR MANAGER IV 05/23/17 16:30 05/27/17 16:29 05/23/17 15:34 (Bicitra Liq) 30 ml SENIOR MANAGER PO 05/23/17 17:00 05/27/17 16:59 05/23/17 15:34 (NS Flush) 2 ml BID IV FLUSH 05/23/17 21:00 (NS Flush) 2 ml UNSCH PRN IV FLUSH 05/23/17 19:00 (Mylicon Chew) 80 mg QID PRN PO 05/23/17 19:00 05/25/17 12:25 (Tylenol) 650 mg Q6H PRN PO 05/23/17 19:00 (Motrin) 600 mg Q6H PRN PO 05/23/17 19:00 05/26/17 03:42 (Percocet 5-325 Mg) 1 tab Q4H PRN PO 05/23/17 19:00 05/24/17 08:32 (Percocet 5-325 Mg) 2 tab Q4H PRN PO 05/23/17 19:00 05/26/17 03:42 (Sandy-Colace) 2 tab Q12H PRN PO 05/23/17 19:00 05/25/17 13:25 (Ambien) 5 mg HS PRN PO 05/23/17 19:00 (Zofran Inj) 4 mg Q6H PRN IV PUSH 05/23/17 19:00 Assessment/Plan Assessment and Plan 36y/o female who is POD#3 s/p CS w/ tubal ligation -Continue routine care -Added Procardia XL 30mg qD for HTN that began this morning >150s/90s -Percocet and Motrin PRN pain -Colace PRN for constipation -Encouraged OOB. Advised pelvic rest for 6 wks -Will need a follow-up appointment within 1 week for incision check -Re: ctrl - patient had a tubal ligation D/C likely tomorrow due to increased BP Discussed with Jhon Ruby and Radha Discharge Planning Discharge home likely tomorrow once BP has stabilized Yesy Crook MD R1 May 26, 2017 08:33
--- NOTE | 2017-05-26 08:38 | HHI.DCPOC ---
Discharge Care Plan Diagnosis: (1) S/P primary low transverse (2) Hypertension affecting in third trimester Report Symptoms to Your Doctor -Temperature above 100.5 degrees -Redness, of incision or excessive or foul smelling drainage -Unusual pain or calf pain -Increased vaginal bleeding -Painful or difficulty urinating -Feelings of extreme sadness or anxiety after 2 weeks Goals to Promote Your Health * To prevent worsening of your condition and complications * To maintain your health at the optimal level Directions to Meet Your Goals Take your medications as prescribed Follow your dietary instruction Follow activity as directed Ensure plenty of rest for recovery Drink fluids for hydration Keep your appointments as scheduled Take your immunizations and boosters as scheduled If your symptoms worsen call your PCP, if no PCP go to Urgent Care Center or Emergency Room Smoking is Dangerous to Your Health. Avoid second hand smoke Call the 24-hour crisis hotline for domestic abuse at Felix Garcia MD May 26, 2017 08:38
[2017-05-26 10:17] VITALS: BP 156/90; PULSE 103; RESP 20
[2017-05-26] MEDS: NIFEdipine 30 MG SUSTAINED RELEASE TAB PO SCH (10:20)
[2017-05-26 15:00] VITALS: BP 149/69; PULSE 100; TEMP 98.1; O2SAT 99
[2017-05-26 16:29] VITALS: BP 153/86; PULSE 102; RESP 19
[2017-05-26] MEDS: SODIUM CHLORIDE 0.9% FLUSH 10 ML FLUSH IV FLUSH SCH (19:48)
[2017-05-26] MEDS: LACTATED RINGER'S 1000 ML INJ 1,000 ML IV SCH (22:27)
[2017-05-27 05:00] VITALS: BP 105/61; PULSE 101; RESP 20; TEMP 98.2
[2017-05-27] MEDS: IBUPROFEN 600 MG TAB PO PRN (05:47)
[2017-05-27] MEDS: oxyCODONE/ACETAMINOPHEN 5 MG/325 MG TAB PO PRN (05:47)
[2017-05-27 07:42] VITALS: BP 133/70; PULSE 101; RESP 18; TEMP 97.8; O2SAT 97
[2017-05-27] MEDS ORDERED: NIFE30TA8 PO (08:59)
--- NOTE | 2017-05-27 09:01 | HHI.OB ---
Subjective Post Operative Day: 4 Remarks Postoperative day number 4. AF overnight. Blood pressure improved from yesterday , 105/61 and 133/70 this morning. Pain minimal. Incision not draining. Decreased lochia. Denies dysuria. No breast tenderness. She is feeding the baby via breast/bottle. Appetite good. No nausea or vomiting. Endorses flatus. No bowel movement. Ambulating well. Denies calf pain, shortness of breath, or cough. Otherwise, she is doing well this morning and has no other complaints. Objective Vitals/I&O Vital Signs Date Time Temp Pulse Resp B/P (MAP) Pulse Ox O2 Delivery O2 Flow Rate FiO2 05/27/17 07:42 133/70 (91) 05/27/17 07:42 97.8 101 18 97 05/27/17 05:00 98.2 101 20 105/61 (76) 05/26/17 16:29 19 05/26/17 16:29 102 153/86 (108) 05/26/17 15:00 98.1 100 149/69 (95) 99 05/26/17 10:17 20 05/26/17 10:17 103 156/90 (112) Result Diagram: 05/24/17 0451 05/23/17 1238 Objective Remarks GENERAL: Well-nourished, well-developed patient. CARDIOVASCULAR: Regular rate and rhythm without murmurs, gallops, or rubs. RESPIRATORY: Breath sounds equal bilaterally. No accessory muscle use. ABDOMEN/GI: Abdomen soft, non-tender, bowel sounds present. Incision: Clean, dry and intact. Fundus: Firm, non-tender below umbilicus. GENITOURINARY: Light to moderate bleeding. EXTREMITIES: No cyanosis or edema, non-tender, without signs of DVT. Medications and IVs Current Medications Medications (Trade) Dose Ordered Sig/Kerrie Route Start Time Stop Time Status Last Admin Lactated Ringer's 1,000 ml @ 150 mls/hr Q6H40M IV 05/23/17 15:52 Cefazolin Sodium/ Dextrose 50 ml @ 100 mls/hr MANAGER ATHLETICS IV 05/23/17 16:30 05/27/17 16:29 05/23/17 15:34 (Bicitra Liq) 30 ml MANAGER ATHLETICS PO 05/23/17 17:00 05/27/17 16:59 05/23/17 15:34 (NS Flush) 2 ml BID IV FLUSH 05/23/17 21:00 (NS Flush) 2 ml UNSCH PRN IV FLUSH 05/23/17 19:00 (Mylicon Chew) 80 mg QID PRN PO 05/23/17 19:00 05/25/17 12:25 (Tylenol) 650 mg Q6H PRN PO 05/23/17 19:00 (Motrin) 600 mg Q6H PRN PO 05/23/17 19:00 05/27/17 05:47 (Percocet 5-325 Mg) 1 tab Q4H PRN PO 05/23/17 19:00 05/24/17 08:32 (Percocet 5-325 Mg) 2 tab Q4H PRN PO 05/23/17 19:00 05/27/17 05:47 (Sandy-Colace) 2 tab Q12H PRN PO 05/23/17 19:00 05/25/17 13:25 (Ambien) 5 mg HS PRN PO 05/23/17 19:00 (Zofran Inj) 4 mg Q6H PRN IV PUSH 05/23/17 19:00 (Procardia Xl) 30 mg DAILY PO 05/26/17 10:00 05/26/17 10:20 Assessment/Plan Assessment and Plan 36y/o female who is POD#4 s/p CS w/ tubal ligation -Continue routine care -Procardia XL 30mg qD for HTN -Percocet and Motrin PRN pain -Colace PRN for constipation -Encouraged OOB. Advised pelvic rest for 6 wks -Will need a follow-up appointment within 1 week for incision check -Re: ctrl - patient had a tubal ligation D/C today dw Dr. Joshi Discharge Planning Discharge home today Felix Garcia MD May 27, 2017 09:01
[2017-05-27] MEDS: NIFEdipine 30 MG SUSTAINED RELEASE TAB PO SCH (09:37)
== END 2017-05-27 10:50 | disposition home or self-care (01) | DRG 766 ==
LOC: HOBED 11:47 → H2EA 14:35 → H1EA 18:36
PROVIDERS: ADMIT Obstetrics & Gynecology; ATTEND Obstetrics & Gynecology
PROC: 10D00Z1 Extraction of Products of Conception, Low, Open Approach (ICD-10-PCS; principal; 2017-05-23)
PROC: 0UB70ZZ Excision of Bilateral Fallopian Tubes, Open Approach (ICD-10-PCS; 2017-05-23)
DX: O14.14 Severe pre-eclampsia complicating childbirth (principal); O99.214 Obesity complicating childbirth; O99.824 Streptococcus B carrier state complicating childbirth; O76 Abnormality in fetal heart rate and rhythm complicating labor and delivery; Z37.0 Single live birth; Z3A.39 39 weeks gestation of pregnancy; O34.211 Maternal care for low transverse scar from previous cesarean delivery; Z30.2 Encounter for sterilization
CPT/HCPCS: 36415; 80053; 80307; 81001; 82570; 82805; 84156; 84550; 85025; 86850; 86900; 86901; 88305; 90715; J0131; J0690; J1100; J2274; J2370; J2405; J2590; J3010; J7120; Q0163